=== PATIENT | female | born 1975 | race Asian ===

== ENCOUNTER → 2017-12-24 | Outpatient (CLI) | payer OTHER ==
--- NOTE | 2017-12-24 10:40 | RADIOLOGY IMAGING REPORT ---
FACILITY: [facility] PATIENT NAME: Melissa Quintero : 1975 MR: [id number] V: [id number] EXAM DATE: ORDERING PHYSICIAN: DON SANTOS TECHNOLOGIST: Location: [facility] Patient: Melissa Quintero : 1975 Visit/Account:[id number] Date of Sevice: 12/24/2017 DEXA Scan Clinical history: Osteopenia. Comparison: DEXA scan from 12/06/2015. LUMBAR SPINE: The bone mineral density (BMD) measured from L1-L4 correlates with a Z-score of -1.4 and a T-score of -1.7 which is osteopenia as defined by the World Health Organization. The corresponding risk of fra cture in the lumbar spine is 3-4 times increased compared with a young adult reference population. T his value has increase by 4.4 % since the prior study. More than 5% change is considered significant . HIP: Bone mineral density (BMD) measured in the LEFT total hip region correlates with a Z-score -1.3 and a T-score of -1.7 which is osteopenia as defined by the World Health Organization. The corresponding risk of fracture in the hip is 3-4 times increased compared to a young adult reference population. Th is value has increased by 0.1 % since the prior study. More than 5% change is considered significant . T score left femoral neck -1.7 Bone mineral density (BMD) measured in the Femoral Neck region measures 0.802 g/cm?. IMPRESSION: 1. Lumbar spine: Osteopenia. There has been 4.4% increase in the bone mineral density since the pre vious exam. 2. Left Total Hip: Osteopenia. There has been 0.1% increase in the bone mineral density since the p revious exam. 3. Femoral Neck: Bone Mineral Density is 0.802 g/cm? The next DEXA scan of this patient should include the following sites: L1-L4 and the left hip. FRAX? WHO Fracture Risk Assessment Tool link: <http://www.shef.ac.uk/FRAX/tool.jsp?locationValue=9> PLEASE NOTE: 1) The World Health Organization defines low BMD as follows: T-score Normal > -1 Osteopenia < -1 and > -2.5 Osteoporosis < -2.5 without fractures Established osteoporosis < -2.5 with fractures 2) In general, you may wish to consider: Diagnosis Treatment Follow-up DEXA Normal BMD Prevention 2-3 years Osteopenia Prevention/therapy 1-2 years Osteoporosis Therapy Yearly 3) Fracture risk estimated from the T-score is more accurate for vertebral fractures (often spontane ous) than for hip fractures. Report Dictated By: Radha Gold MD at 12/24/2017 10:34 AM Report E-Signed By: Radha Gold MD at 12/24/2017 10:35 AM EASTONN:[email or web address]
--- NOTE | 2017-12-24 14:59 | RADIOLOGY IMAGING REPORT ---
FACILITY: PATIENT NAME: JACQUE BOBO : [id number] MR: [id number] V: [id number] EXAM DATE: [id number] ORDERING PHYSICIAN: DON SANTOS TECHNOLOGIST: Starr Garcia PROCEDURE:BILATERAL DIGITAL SCREENING MAMMOGRAM WITH CAD ASSISTED INTERPRETATION & 3D TOMOSYNTHESIS COMPARISON:None. INDICATIONS:SCREENING FINDINGS: Dense heterogeneous fibroglandular tissue is seen throughout the breasts. There is no demonstration of malignant appearing mass, malignant appearing calcifications or other secondary sign of malignancy in either breast. DIAGNOSTIC CATEGORY 1--NEGATIVE. RECOMMENDATIONS: ROUTINE MAMMOGRAM AND CLINICAL EVALUATION. IMPRESSION: BIRADS 1: Negative. No significant abnormality is seen. Dictated by: Radha Gold M.D. on 12/24/2017 at 14:39 Transcribed by: SKINNY on 12/24/2017 at 14:45 Approved by: Radha Gold M.D. on 12/24/2017 at 14:57 [facility]
== END ==
LOC: MAMO 00:21
PROVIDERS: ATTEND Obstetrics & Gynecology
DX: Z12.31 Encounter for screening mammogram for malignant neoplasm of breast (principal); M85.80 Other specified disorders of bone density and structure, unspecified site
CPT/HCPCS: 77063; 77067; 77080

== ENCOUNTER → 2018-04-16 | Outpatient (CLI) | payer OTHER ==
--- NOTE | 2018-04-16 10:29 | RADIOLOGY IMAGING REPORT ---
[place] [facility] [place] NAME: Melissa Quintero : 1975 MR: [id number] V: [id number] EXAM DATE: ORDERING PHYSICIAN: MINISTERIO GARCIA TECHNOLOGIST: Location: [facility] [place] Patient: Melissa Quintero : 1975 Visit/Account:[id number] Date of Sevice: 04/16/2018 Exam type: CHEST PA LAT History: Positive TB test, nonsmoker Comparison: None. Findings: The lungs are free of acute effusions, infiltrates or edema. No cavitary lesions are seen. The card iac silhouette is normal in size. The trachea is in midline. There is a mild exaggeration of normal thoracic kyphosis at the thoracolumbar junction. There is straightening of normal thoracic kyphosis IMPRESSION: 1. No acute cardiopulmonary process is seen. Specifically no chest radiographic evidence of active tuberculosis Report Dictated By: Radha Gold MD at 04/16/2018 10:22 AM Report E-Signed By: Radha Gold MD at 04/16/2018 10:24 AM WSN:[email or web address]
== END ==
LOC: RAD 09:23
PROVIDERS: ATTEND Family Medicine
DX: R76.11 Nonspecific reaction to tuberculin skin test without active tuberculosis (principal)
CPT/HCPCS: 71046